=== PATIENT | female | born 1990 | race Caucasian/White ===

== ENCOUNTER 2022-09-26 18:47 | Emergency (ER) | payer OTHER, SELFPAY ==
--- NOTE | ~2022-09-26 | XR_ITS ---
EXAMINATION: XR SHOULDER, LEFT CLINICAL INFORMATION: Left shoulder pain COMPARISON: None available. TECHNIQUE: AP external rotation, Grashey, scapular Y, and axillary views of the left shoulder. FINDINGS: The bones and soft tissues are normal. No fracture. Glenohumeral and acromioclavicular alignment is anatomic with normal joint space. No abnormal soft tissue calcifications. XR/XR shoulder LT min 2V IMPRESSION: Normal left shoulder.
--- NOTE | ~2022-09-26 | CT_ITS ---
EXAMINATION: CT CERVICAL SPINE WITHOUT CONTRAST CLINICAL INFORMATION: Neck pain. COMPARISON: None. TECHNIQUE: Helical noncontrast CT imaging was acquired through the cervical spine and source images were reviewed along with axial reconstructions and sagittal and coronal MPRs. This CT examination was performed using dose optimization techniques as appropriate, variously including the following: *Automated exposure control. *Adjustment of mA and/or kV according to patient size (this includes techniques or standardized protocols for targeted exams where dose is matched to indication/reason for exam; i.e. extremities or head). *Use of iterative reconstruction technique. Total exam dose-length product 628 mGy-cm FINDINGS: CERVICAL SPINE: There is reversal of normal cervical lordosis present. There is no evidence of acute cervical spine fracture. Vertebral bodies remain normal in height, intervertebral disc spaces are preserved, and alignment is anatomic. No prevertebral or paravertebral soft tissue abnormality is identified. Limited assessment of the lung apices is unremarkable. CT/CT cervical spine wo IV con IMPRESSION: No CT evidence of acute cervical spine fracture or traumatic subluxation. Nonspecific reversal of normal cervical lordosis.
[2022-09-26 18:55] VITALS: BP 116/78; PULSE 93; RESP 18; TEMP 36.6; O2SAT 97; BMI 34.4
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
== END 2022-09-26 21:00 | disposition home or self-care (01) ==
PROVIDERS: Emergency Provider Student in an Organized Health Care Education/Training Program
DX: S46.912A Strain of unspecified muscle, fascia and tendon at shoulder and upper arm level, left arm, initial encounter (principal); V43.52XA Car driver injured in collision with other type car in traffic accident, initial encounter; E66.9 Obesity, unspecified; Z68.34 Body mass index [BMI] 34.0-34.9, adult; Y93.89 Activity, other specified; Y92.414 Local residential or business street as the place of occurrence of the external cause; Y99.9 Unspecified external cause status
CPT/HCPCS: 72125; 73030; 99282; 99284

== ENCOUNTER 2024-11-09 18:22 | Emergency (ER) | payer SELFPAY ==
--- NOTE | 2024-11-09 18:27 | ECG_ITS ---
Test Reason : CP Blood Pressure : */* mmHG Vent. Rate : 84 BPM Atrial Rate : 84 BPM P-R Int : 136 ms QRS Dur : 68 ms QT Int : 352 ms P-R-T Axes : 32 14 28 degrees QTcB Int : 415 ms Normal sinus rhythm with sinus arrhythmia Cannot rule out Anterior infarct , age undetermined Abnormal ECG When compared with ECG of 28-Jul-2018 12:41, No significant change was found Referred By: Generic ED Physician Electronically Signed By: Aldo Upton
--- NOTE | 2024-11-09 18:38 | ED.GENADULT ---
HPI - General Adult General Chief complaint: Chest Pain Stated complaint: chest pain/neck pain Time Seen by Provider: 11/09/24 22:41 Source: patient Mode of arrival: ambulatory Limitations: no limitations History of Present Illness ED Provider: Cecilio FINCH HPI narrative: The patient is a 34-year-old female presenting to the ED for evaluation of ongoing chest tightness and left arm numbness which has been occurring intermittently since she suffered a fainting spell 1 week ago on Thursday while at work. The patient denies associated fever/chills, nausea, vomiting, pleurisy, hemoptysis, cough, shortness of breath, abdominal pain, focal neurological deficit, recent sick contacts, or recent trauma. The patient reports a history of panic attacks when she was younger, reports this felt similar. Patient advises she is currently under a large amount of stress from work and an ongoing divorce. The patient reports at that time she did not experience any other focal neurological deficit, headache, abdominal pain, or other prodrome. The patient denies any recurrent episodes of near-syncope or syncope since the initial onset of symptoms. The patient does not currently take anxiolytics or meet with a therapist. Related Data Previous Rx's ?Medication ?Instructions ?Recorded cyclobenzaprine 10 mg tablet 10 mg PO TID PRN muscle spasm #14 09/26/22 tabs Allergies Allergy/AdvReac Type Severity Reaction Status Date / Time vancomycin (VANCOMYCIN) Allergy Intermediate FACE ITCHY Verified 11/09/24 18:41 AND RED latex (LATEX) Allergy Unknown RASH Verified 11/09/24 18:41 [facility] Social History Social History Advance Directives: No Advance Directives Information Provided: Yes Do you have a plan to hurt others: No Plan Physical Exam ED Vital Signs: Vital Signs - 24 hr 11/09/24 18:39 Temperature 98.1 F Pulse Rate 87 Respiratory Rate 12 Blood Pressure 122/88 Pulse Oximetry 99 Oxygen Delivery Method Room Air BMI result Body Mass Index 37.5 Course Course Course Narrative: This is a rapid medical exam performed by Rodo Chavez NP: Additional HPI, ROS, PE not included below will be deferred to primary provider. Patient is a 34 year old female presenting to the ED with complaint of tachycardia, chest pain, numbness to back of head radiating to left arm since anxiety attack on Thu of last week. States she also fainted for a few seconds. Has never had ongoing sxs after an anxiety attack before. Plan: EKG, labs Medical Decision Making Medical Decision Making MDM Narrative: 11:29 PM 11/09/2024 (Shady FINCH): The patient is a 34-year-old female presenting to the ED for evaluation of ongoing chest tightness and left arm numbness which has been occurring intermittently since she suffered a fainting spell 1 week ago on Thursday while at work. The patient denies associated fever/chills, nausea, vomiting, pleurisy, hemoptysis, cough, shortness of breath, abdominal pain, focal neurological deficit, recent sick contacts, or recent trauma. The patient reports a history of panic attacks when she was younger, reports this felt similar. Patient advises she is currently under a large amount of stress from work and an ongoing divorce. The patient reports at that time she did not experience any other focal neurological deficit, headache, abdominal pain, or other prodrome. The patient denies any recurrent episodes of near-syncope or syncope since the initial onset of symptoms. The patient does not currently take anxiolytics or meet with a therapist. On exam the patient is well-appearing, patient's left chest pain is fully reproduced with palpation of the upper ribs, no crepitus, step-off, or deformity, no reported trauma. Lung sounds clear bilaterally. No other acute findings. The patient denies any recent travel, denies lower extremity complaints. The patient is PERC negative. Laboratory evaluation shows normal troponin, EKG is nonischemic, remainder of laboratory workup is reassuring, no leukocytosis, anemia, electrolyte abnormality, or JORDIN. The patient is requesting discharge, at this time there was no indication for additional observation or admission. Patient will be discharged with instructions to follow up with PCP. Admission/Observation Consideration of admission/observation: Escalation of care including admission/observation considered Lab Data MDM Lab Attestation statement: I reviewed the patient's lab results. 11/09/24 18:35 11/09/24 18:35 Labs: Lab Results 11/09/24 Range/Units 18:35 WBC 10.6 (4.8-10.8) X10*3/uL RBC 4.44 (4.20-5.50) X10*6/uL Hgb 14.0 (12.0-16.0) g/dl Hct 40.6 (37.0-47.0) % MCV 91.4 (80.0-98.0) fL MCH 31.5 (27.0-33.0) pg MCHC 34.5 (31.0-35.0) g/dl RDW 12.2 (11.0-16.0) % Plt Count 269 (160-400) X10*3/uL MPV 9.3 L (9.4-12.3) fL Immature Gran % (Auto) 0.2 (0.0-0.4) % Neut % (Auto) 68.9 (45-73) % Lymph % (Auto) 22.0 (20-40) % [place] % (Auto) 7.3 (2-11) % Eos % (Auto) 1.1 (0-4) % Baso % (Auto) 0.5 (0-2) % Lymph # (Auto) 2.3 (1.2-4.9) X10*3/uL [place] # (Auto) 0.8 (0.1-1.2) X10*3/uL Eos # (Auto) 0.1 (0.0-0.4) X10*3/uL Baso # (Auto) 0.1 (0.0-0.2) X10*3/uL Abs Immat Gran (auto) 0.02 (0.00-0.03) X10*3/uL Absolute Neuts (auto) 7.3 (2.0-8.3) x10*3/uL Absolute Nucleated RBC 0.000 (0.0-0.012) X10*3/uL Nucleated RBC % (auto) 0.0 (0.0-0.2) /100WBC Sodium 140 (135-145) mmol/L Potassium 4.1 (3.3-5.1) mmol/L Chloride 107 (96-108) mmol/L Carbon Dioxide 25 (22-29) mmol/L Anion Gap 12 (12-20) BUN 13 (9-16) mg/dL Creatinine 0.99 (0.5-1.4) mg/dL Estim Creat Clear Calc 77.0 Estimated GFR > 60 Random Glucose 104 (60-115) mg/dL Calcium 9.7 (8.4-10.2) mg/dL Total Bilirubin 0.3 (0.0-1.0) mg/dL AST 23 (5-31) U/L ALT 18 (0-31) U/L Alkaline Phosphatase 77 (39-117) U/L Troponin I High Sens < 2.7 (<3.5-17.0) ng/L Total Protein 7.5 (6.5-8.0) g/dL Albumin 4.6 (3.5-5.0) g/dL Independent Interpretation I performed an independent interpretation of an: EKG (EKG shows sinus rhythm with a sinus arrhythmia, no evidence of acute ischemia, no ST elevation, no ectopy. QTC 415. Compared to previous on 07/28/2018 there are no acute morphology changes. ) Discharge Plan Discharge Clinical Impression: Atypical chest pain, Anxiety Patient Disposition: Home, Self-Care Instructions: Noncardiac Chest Pain (ED), Anxiety (ED), Chest Wall Pain (ED), Panic Attack (ED) Additional Instructions: Thank you for choosing [facility] Emergency Department for your care today. Thankfully your EKG, laboratory evaluation, and exam today show no evidence of a cardiac, infectious, metabolic, coagulopathic (blood clot), or other dangerous cause for your fainting episode last week. At this time there is no indication for admission to the hospital or continued ED observation, and it is safe to discharge you home. Your symptoms last week may have been related to a panic attack as you described, your ongoing chest tightness and left arm pain/numbness may be additional expressions of anxiety by your body. You may take alternating (staggered) doses of ibuprofen 600mg and Tylenol 1000mg every 4 hours as needed for any additional pain. Please follow up with the resources provided to establish a therapist to discuss your anxiety symptoms. Please also follow up with your primary care physician for re-evaluation, additional management of your symptoms, and continued preventative care. If you do not have a primary care physician, please call the [facility] at [phone] to establish a new primary care physician. While waiting to establish your new primary care physician, you can call our [facility] at [phone] for non-emergency needs. Please return to the emergency department if you develop a severe or sudden change in your symptoms, a fever over 100.4 that does not improve with Tylenol or Ibuprofen, recurrent vomiting, or any other new or worsening symptoms or concerns. Prescriptions: No Action cyclobenzaprine 10 mg tablet 10 mg PO TID PRN (Reason: muscle spasm) Qty: 14 0RF Referrals: Physician,Unknown J [Primary Care Provider, Medical] Clinical Impression: Anxiety; Atypical chest pain Stand Alone Forms: Work/School Release Print Language: Gabonese
[2024-11-09 18:39] VITALS: BP 122/88; PULSE 87; RESP 12; TEMP 36.7; O2SAT 99; BMI 37.5
[2024-11-09 18:39] LABS: MANUAL DIFF FLAG NO
[2024-11-09 18:41] LABS: Hematocrit 40.6 % (37.0-47.0); Hemoglobin 14.0 g/dl (12.0-16.0); Imm Gran Abs Auto 0.02 X10*3/uL (0.00-0.03); Imm Gran Pct Auto 0.2 % (0.0-0.4); Lymphocytes Absolute Auto 2.3 X10*3/uL (1.2-4.9); Mean Corpuscular HGB Conc 34.5 g/dl (31.0-35.0); Mean Corpuscular Hemoglobin 31.5 pg (27.0-33.0); Mean Corpuscular Volume 91.4 fL (80.0-98.0); NRBC Abs Auto 0.000 X10*3/uL (0.0-0.012); NRBC Pct Auto 0.0 /100WBC (0.0-0.2); Platelet Count 269 X10*3/uL (160-400); Red Blood Count 4.44 X10*6/uL (4.20-5.50); White Blood Count 10.6 X10*3/uL (4.8-10.8)
[2024-11-09 18:53] LABS: Alanine Aminotransferase 18 U/L (0-31); Albumin Level 4.6 g/dL (3.5-5.0); Alkaline Phosphatase 77 U/L (39-117); Anion Gap 12 (12-20); Aspartate Amino Transferase 23 U/L (5-31); Blood Urea Nitrogen 13 mg/dL (9-16); Calcium 9.7 mg/dL (8.4-10.2); Carbon Dioxide 25 mmol/L (22-29); Chloride 107 mmol/L (96-108); Creatinine Clr Calc Pharmacy 77.0; Estimated Glomerular Filt Rate > 60; Potassium 4.1 mmol/L (3.3-5.1); Sodium 140 mmol/L (135-145); Total Protein 7.5 g/dL (6.5-8.0)
[2024-11-09 19:00] LABS: Troponin-I High Sensitivity < 2.7 ng/L (<3.5-17.0)
[2024-11-09 23:41] VITALS: BP 112/72; PULSE 73; RESP 16; TEMP 36.7; O2SAT 100
[2024-11-09 23:46] VITALS: BP 112/72; PULSE 73; RESP 16; TEMP 36.7; O2SAT 100
== END 2024-11-09 23:47 | disposition home or self-care (01) ==
PROVIDERS: Emergency Provider Emergency Medicine
DX: R07.89 Other chest pain (principal); F41.9 Anxiety disorder, unspecified; R20.0 Anesthesia of skin; R55 Syncope and collapse; R00.0 Tachycardia, unspecified; M54.2 Cervicalgia; F43.89 Other reactions to severe stress
CPT/HCPCS: 36415; 80053; 84484; 85025; 93005; 99283; 99284

== ENCOUNTER → 2024-11-09 18:27 | Outpatient (BNV) | payer SELFPAY | PROVIDERS: Emergency Provider Emergency Medicine; Visit Provider Internal Medicine Cardiovascular Disease | DX: I49.9 Cardiac arrhythmia, unspecified (principal) | CPT/HCPCS: 93010 ==